=== PATIENT | female | born 1980 | race American Indian/Alaskan Native ===

== ENCOUNTER 2019-03-14 11:44 | Emergency (ER) | payer OTHER ==
[2019-03-14 11:58] VITALS: BP 122/76
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
[2019-03-14] MEDS ORDERED: IBUPROFEN PO ONE (13:27)
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
== END 2019-03-14 14:40 | disposition left against medical advice (07) ==
LOC: ED 11:44
DX: S13.4XXA Sprain of ligaments of cervical spine, initial encounter (principal); S33.5XXA Sprain of ligaments of lumbar spine, initial encounter; S86.912A Strain of unspecified muscle(s) and tendon(s) at lower leg level, left leg, initial encounter; F17.200 Nicotine dependence, unspecified, uncomplicated; V49.49XA Driver injured in collision with other motor vehicles in traffic accident, initial encounter; Y93.89 Activity, other specified; Y92.410 Unspecified street and highway as the place of occurrence of the external cause; Y99.8 Other external cause status
CPT/HCPCS: 72040; 72100

== ENCOUNTER 2020-07-15 06:07 | Emergency (ER) | payer SELFPAY ==
[2020-07-15] MEDS ORDERED: ASPIRIN 325 MG TAB PO ONE (06:35)
[2020-07-15] MEDS ORDERED: SODIUM CHLORIDE 0.9% 1000 ML 1,000 ML IV ONE ×2 (06:48→06:49)
[2020-07-15] MEDS ORDERED: ONDANSETRON 4 MG/2 ML INJ IV ONE (06:48)
[2020-07-15] MEDS ORDERED: PANTOPRAZOLE 40 MG INJ IV ONE (06:49)
--- NOTE | 2020-07-15 06:53 | Emergency Department Report ---
ED N/V/D HPI - General Chief complaint: Nausea/Vomiting/Diarrhea Stated complaint: CHEST PAIN/VOMITING X 5DAYS PUI?: No Time Seen by Provider: 07/15/20 06:48 Source: patient Mode of arrival: Ambulatory Limitations: No Limitations - History of Present Illness Initial comments: CC: "I fainted. I have been vomiting for 5 days. My chest hurts." HPI: This is a 40-year-old female with history of prediabetes and daily marijuana use who presents with nausea vomiting for 5 days. She also has chest discomfort. She seen 1 day ago. Nausea vomiting began gradually. She has been unable to eat for the past 5 days. She has a sensation in her chest that feels like a "hunk of meat". Syncope occurred upon standing. No preceding chest pain palpitations. Chest pain is mild. No change with movement or cough. No radiation. Pain is persistent. Worsens with vomiting. MD complaint: nausea, vomiting -: Gradual, days(s) (5) Description of Vomiting: food contents Associated Abdominal Pain: No Radiation: none Severity: severe Quality: other (Foreign body sensation in chest) Consistency: constant Improves with: none Context: history of abdominal surg (History of hysterectomy), other (Daily marijuana use) Associated Symptoms: syncope - Related Data Previous Rx's Medication Instructions Recorded Last Taken Type Famotidine [Acid Controller] 20 mg PO BID 30 Days #60 tablet 07/15/20 Unknown Rx Promethazine [Phenergan] 25 mg PO Q8HR PRN #15 tab 07/15/20 Unknown Rx Allergies Allergy/AdvReac Type Severity Reaction Status Date / Time No Known Allergies Allergy Verified 03/14/19 11:45 ED Review of Systems ROS: Stated complaint: CHEST PAIN/VOMITING X 5DAYS Other details as noted in HPI Comment: All other systems reviewed and negative Constitutional: malaise. denies: fever Respiratory: denies: cough Cardiovascular: chest pain, syncope. denies: palpitations Gastrointestinal: nausea, vomiting. denies: abdominal pain, diarrhea ED Past Medical Hx - Past Medical History Previous Medical History?: Yes Hx Diabetes: Yes (Pre Diabetic) - Surgical History Past Surgical History?: Yes Additional Surgical History: Hysterectomy - Social History Smoking Status: Current Some Day Smoker Substance Use Type: Alcohol, Marijuana - Medications Home Medications: Home Medications Medication Instructions Recorded Confirmed Last Taken Type Famotidine [Acid Controller] 20 mg PO BID 30 Days #60 tablet 07/15/20 Unknown Rx Promethazine [Phenergan] 25 mg PO Q8HR PRN #15 tab 07/15/20 Unknown Rx ED Physical Exam - General Limitations: No Limitations General appearance: alert, in no apparent distress, other (Appears ill no acute distress) - Head Head exam: Present: atraumatic, normocephalic - Eye Eye exam: Present: normal appearance - ENT ENT exam: Present: mucous membranes dry - Neck Neck exam: Present: normal inspection, full ROM - Respiratory Respiratory exam: Present: normal lung sounds bilaterally. Absent: respiratory distress, wheezes, rales, rhonchi - Cardiovascular Cardiovascular Exam: Present: normal rhythm, tachycardia, normal heart sounds. Absent: systolic murmur, diastolic murmur, rubs, gallop - GI/Abdominal GI/Abdominal exam: Present: soft, normal bowel sounds. Absent: distended, tenderness, guarding, rebound - Extremities Exam Extremities exam: Present: normal inspection - Neurological Exam Neurological exam: Present: alert, oriented X3 - Psychiatric Psychiatric exam: Present: normal affect, normal mood - Skin Skin exam: Present: warm, dry, intact, normal color. Absent: rash ED Course Vital Signs 07/15/20 07/15/20 06:30 07:45 Temperature 98.4 F 98.8 F Pulse Rate 121 H 84 Respiratory 18 12 Rate Blood Pressure 116/83 Blood Pressure 117/73 [Left] O2 Sat by Pulse 98 98 Oximetry ED Medical Decision Making - Lab Data Result diagrams: 07/15/20 06:37 07/15/20 06:37 - EKG Data -: EKG Interpreted by Nm EKG shows normal: sinus rhythm, axis, intervals, QRS complexes, ST-T waves Rate: tachycardia - EKG Data 07/15/20 06:59 EKG obtained 0618 Sinus tachycardia rate 110 bpm normal axis normal intervals enlarged P waves no ST elevation nonischemic nonspecific T wave pattern - Radiology Data Radiology results: report reviewed, image reviewed XR chest 1V ap INDICATION / CLINICAL INFORMATION: Chest Pain COMPARISON: None available. FINDINGS: SUPPORT DEVICES: None. HEART / MEDIASTINUM: No significant abnormality. LUNGS / PLEURA: Lungs are clear. Costophrenic sulci are sharp. No pneumothorax. ADDITIONAL FINDINGS: No significant additional findings. IMPRESSION: 1. No acute findings. - Medical Decision Making Clinical impression: Cannabinoid hyperemesis syndrome with GERD heartburn Chemistry within normal limits with exception of mild hypokalemia. Kidney function normal. Normal random glucose level. Troponin and D-dimer within normal limits. Elevated hemoglobin hematocrit reflective of volume contraction. Patient received IV fluid IV antiemetic. Suspect syncope tachycardia due to dehydration. Patient received IV antiemetic and IV analgesia. Prescribed promethazine and famotidine. Patient did not experience any vomiting during her 5-hour ED encounter. Critical care attestation.: If time is entered above; I have spent that time in minutes in the direct care of this critically ill patient, excluding procedure time. ED Disposition Clinical Impression: Dehydration, GERD (gastroesophageal reflux disease), Syncope, Hypokalemia, Cannabinoid hyperemesis syndrome Disposition: - TO HOME OR SELFCARE Is pt being admited?: No Does the pt Need Aspirin: No Condition: Stable Instructions: Syncope (ED), Dehydration, Adult, [id number], Cyclic Vomiting Syndrome, Adult Prescriptions: Famotidine [Acid Controller] 20 mg PO BID 30 Days #60 tablet Promethazine [Phenergan] 25 mg PO Q8HR PRN #15 tab PRN Reason: Nausea Referrals: BILLY WU MD [Staff Physician] - 3-5 Days
[2020-07-15 06:55] LABS: Basophils % (Auto) 0.5 % (0.0-1.8); Hematocrit 44.1 % (30.3-42.9); Hemoglobin 15.3 gm/dl (10.1-14.3); Lymphocytes # (Auto) 1.8 K/mm3 (1.2-5.4); Lymphocytes % (Auto) 27.7 % (13.4-35.0); Mean Corpuscular HGB Conc 35 % (30-34); Mean Corpuscular Volume 87 fl (79-97); Monocytes # (Auto) 0.6 K/mm3 (0.0-0.8); Monocytes % (Auto) 9.3 % (0.0-7.3); Platelet Count 152 K/mm3 (140-440); Red Cell Distribution Width 13.8 % (13.2-15.2)
[2020-07-15 07:15] LABS: Calcium 9.6 mg/dL (8.4-10.2); Hemolysis Index 8
--- NOTE | 2020-07-15 07:20 | XRay Report ---
XR chest 1V ap INDICATION / CLINICAL INFORMATION: Chest Pain COMPARISON: None available. FINDINGS: SUPPORT DEVICES: None. HEART / MEDIASTINUM: No significant abnormality. LUNGS / PLEURA: Lungs are clear. Costophrenic sulci are sharp. No pneumothorax. ADDITIONAL FINDINGS: No significant additional findings. IMPRESSION: 1. No acute findings. Signer Name: Tone Egan MD Signed: 07/15/2020 7:16 AM Workstation Name: [id number]
[2020-07-15 07:38] LABS: BUN/Creatinine Ratio 1; Blood Urea Nitrogen 1 mg/dL (7-17)
[2020-07-15] MEDS ORDERED: MORPHINE 4 MG/1 ML INJ IV ONE (08:10)
[2020-07-15 11:39] VITALS: BP 114/77
== END 2020-07-15 11:53 | disposition home or self-care (01) ==
LOC: ED 06:07
DX: K21.9 Gastro-esophageal reflux disease without esophagitis (principal); R55 Syncope and collapse; E86.0 Dehydration; E87.6 Hypokalemia; R11.10 Vomiting, unspecified; E11.9 Type 2 diabetes mellitus without complications; F17.200 Nicotine dependence, unspecified, uncomplicated; F12.90 Cannabis use, unspecified, uncomplicated; Z79.899 Other long term (current) drug therapy; Z90.710 Acquired absence of both cervix and uterus
CPT/HCPCS: 36415; 71045; 80048; 84484; 85025; 85379; 93005; 96361; 96374; 96375; 99284; C9113; J2270; J2405; J7030